=== PATIENT | female | born 1950 | race Two or more races ===

== ENCOUNTER 2019-01-26 06:37 | Day surgery (SDC) | payer MEDICARE ==
[~2019-01-26] VITALS: Ht 154.9 cm; Wt 85.4 kg
[~2019-01-26 06:37] MED LIST: SODIUM CHLORIDE 0.9% 1,000 ML IV ONE
[2019-01-26] MEDS ORDERED: ALBUTEROL SULFATE 2.5 MG/0.5 ML NEB SOLUTION NEB ONE (06:38)
[2019-01-26] MEDS ORDERED: LIDOCAINE 4% 50 ML SOLUTION TP ONE (06:38)
[2019-01-26] MEDS ORDERED: LIDOCAINE 2% 30 ML JELLY TP ONE (06:38)
[2019-01-26] MEDS ORDERED: BENZOCAINE 20% 50 MCG/SPRAY 57 GM TP ONE (06:38)
[2019-01-26] MEDS ORDERED: MIDAZOLAM HCL 2 MG/2 ML VIAL ONE (08:00)
[2019-01-26] MEDS ORDERED: FentaNYL CITRATE-PF 100 MCG/2 ML VIAL ONE (08:01)
[2019-01-26] MEDS ORDERED: MethylPREDNISolone SOD SUCC 125 MG/2 ML VIAL IVP ONE (09:30)
[2019-01-26] MEDS ORDERED: OXYGEN THERAPY IH SCH (20:00)
== END 2019-01-26 10:50 | disposition home or self-care (01) ==
LOC: SURGERY 06:37
PROVIDERS: ATTEND Internal Medicine Critical Care Medicine
DX: J38.4 Edema of larynx (principal); B37.0 Candidal stomatitis; I10 Essential (primary) hypertension; Z90.49 Acquired absence of other specified parts of digestive tract; J45.909 Unspecified asthma, uncomplicated; Z79.899 Other long term (current) drug therapy; Z98.890 Other specified postprocedural states
CPT/HCPCS: 31623; 31624; 71045; 87015; 87070; 87101; 87205; 87206; 87220; 88108; 88312; J2250; J2930; J3010; J7030

== ENCOUNTER 2020-05-16 06:07 | Day surgery (SDC) | payer MEDICARE, MEDICAID ==
[~2020-05-16] VITALS: Ht 154.9 cm; Wt 85.0 kg
[~2020-05-16 06:07] MED LIST changes: +SODIUM CHLORIDE 0.9% 0 ML ONE; -SODIUM CHLORIDE 0.9% 1,000 ML IV ONE; +SODIUM CHLORIDE 0.9% 1,000 ML ONE
[2020-05-16 06:30] LABS: COVID AG,FIA SOURCE NASOPHARYNGEAL
[2020-05-16] MEDS ORDERED: SODIUM CHLORIDE 0.9% 1,000 ML IV ONE (06:30)
[2020-05-16] MEDS ORDERED: ESCI-8 PO (06:54)
[2020-05-16] MEDS ORDERED: VALS160T2 PO (06:54)
[2020-05-16] MEDS ORDERED: GABA-1216 PO (06:54)
[2020-05-16] MEDS ORDERED: HYDR-1475 PO (06:54)
[2020-05-16] MEDS ORDERED: DOXY-354 PO (06:54)
[2020-05-16] MEDS ORDERED: BENZ100C68 PO (06:54)
[2020-05-16] MEDS ORDERED: OMEP20 PO (06:54)
[2020-05-16] MEDS ORDERED: PRED10 PO (06:54)
[2020-05-16] MEDS ORDERED: AMLO-258 PO (06:54)
[2020-05-16] MEDS ORDERED: FAMO20 PO (06:54)
[2020-05-16] MEDS ORDERED: MONT-35 PO (06:54)
[2020-05-16] MEDS ORDERED: MIDAZOLAM HCL 2 MG/2 ML VIAL ONE (08:10)
[2020-05-16] MEDS ORDERED: FentaNYL CITRATE-PF 100 MCG/2 ML VIAL ONE (08:11)
[2020-05-16] MEDS ORDERED: MethylPREDNISolone SOD SUCC 125 MG/2 ML VIAL IVP ONE (08:45)
[2020-05-16] MEDS ORDERED: MethylPREDNISolone SOD SUCC 125 MG/2 ML VIAL ONE (08:48)
[2020-05-16] MEDS ORDERED: LIDOCAINE 4% 50 ML SOLUTION TP ONE (12:00)
[2020-05-16] MEDS ORDERED: ALBUTEROL SULFATE 2.5 MG/0.5 ML NEB SOLUTION NEB ONE (12:00)
[2020-05-16] MEDS ORDERED: LIDOCAINE 2% 30 ML JELLY TP ONE (12:00)
[2020-05-16] MEDS ORDERED: BENZOCAINE 20% 50 MCG/SPRAY 57 GM TP ONE (12:00)
[2020-05-16] MEDS ORDERED: OXYGEN THERAPY IH SCH (20:00)
== END 2020-05-16 11:15 | disposition home or self-care (01) ==
LOC: SURGERY 06:07
PROVIDERS: ATTEND Internal Medicine Critical Care Medicine
DX: J38.4 Edema of larynx (principal); B37.0 Candidal stomatitis
CPT/HCPCS: 31623; 31624; 71045; 87015; 87070; 87101; 87205; 87206; 87220; 87426; 88184; 88185; 93005; C9803; J2250; J2930; J3010; J7030; J7613; Z7610